=== PATIENT | female | born 1955 | race Caucasian/White ===

== ENCOUNTER 2019-07-06 19:24 | Inpatient (IN) | payer BC ==
[~2019-07-06] VITALS: Ht 167.6 cm; Wt 58.6 kg
--- NOTE | 2019-07-06 19:35 | NUR ---
THIS IS A 63Y F BIB EMS FROM [facility], PT HAS BEEN FEELING WEAK. "WAS HEADING TO HOSPITAL AND I PASSED OUT." PT FOUND HYPOTENSIVE AT [facility] 40'S/20'S PT WAS GIVEN 4L NS. PT BP NOW 112/63. PT HAS HX OF HYPOTHYROID AND HER TSH THERE WAS 15. PT ALSO REPORTS NAUSEA AND LOOSE STOOL STARTING ABOUT 2HRS AGO WITH 1 EPISODE OF VOMITING UPON ARRIVAL, NOW FEELS OK. PER EMS REPORT PT WAS FOUND TO HAVE ST DEPRESSION IN ALL LEADS OF EKG, TECH AT BEDSIDE FOR EKG AT THIS TIME. PT ALSO ARRIVED WITH A GRIFFIN IN PLACE. PT CONNECTED TO ALL MONITORS, VSS, NADN AT THIS TIME.
--- NOTE | 2019-07-06 19:58 | NUR ---
PT IN XRAY AT THIS TIME
[2019-07-06] MEDS ORDERED: SODIUM CHLORIDE FLUSH 10ML SYR IVF ONE (20:00)
[2019-07-06 20:25] LABS: BASOPHILS # (AUTO) 0.02 x10^3/uL (0-0.1); BASOPHILS % (AUTO) 0 % (0-1); EOSINOPHILS # (AUTO) 0.07 x10^3/uL (0-0.4); EOSINOPHILS % (AUTO) 1 % (1-7); LYMPHOCYTES # (AUTO) 0.75 x10^3/uL (1-3.4); LYMPHOCYTES % (AUTO) 5 % (22-44); MD NO; MEAN CORPUSCULAR HEMOGLOBIN 29.3 pg (27.0-34.8); MEAN CORPUSCULAR VOLUME 88.8 fL (80-100); MEAN PLATELET VOLUME 7.8 fL (7.4-10.4); MONOCYTES # (AUTO) 0.52 x10^3/uL (0.2-0.8); MONOCYTES % (AUTO) 4 % (2-9); NEUTROPHILS # (AUTO) 13.34 x10^3/uL (1.8-6.8); NEUTROPHILS % (AUTO) 91 % (42-75); PLATELET COUNT 284 x10^3/uL (130-400); RED BLOOD COUNT 4.88 x10^6/uL (3.82-5.3); RED CELL DISTRIBUTION WIDTH 13.1 % (9.6-15.2)
[2019-07-06 20:28] LABS: MICROSCOPIC NOT IND
[2019-07-06 20:31] LABS: ANION GAP 7 mmol/L (5-15); CALCIUM 6.8 mg/dL (8.5-10.1); CHLORIDE 111 mmol/L (98-107)
[2019-07-06 20:38] LABS: ALANINE AMINOTRANSFERASE 23 U/L (12-78); ALKALINE PHOSPHATASE 36 U/L (45-117); BILIRUBIN,TOTAL 0.3 mg/dL (0.2-1.0); CREATININE 0.62 mg/dL (0.55-1.02); TOTAL PROTEIN 5.5 g/dL (6.4-8.2); TROPONIN I 0.024 ng/mL (0.000-0.045)
--- NOTE | 2019-07-06 20:53 | NUR ---
ORTHOSTATIC VS DONE, SUP 93/58 HR 89, SITTING 86/49 HR 80, STANDING 98/47 HR 80. PT STS SHE DOES NOT FEEL DIZZY/ TINGLING OR UNSTEADY AT THIS TIME.
--- NOTE | 2019-07-06 21:15 | NUR ---
PT REQ GABY JC, ERP UPDATED ON REQ. PER DR. LILLIE GRIFFIN TO BE DC'D
[2019-07-06] MEDS ORDERED: ASPIRIN 325 MG TABLET EC PO ONE (22:00)
--- NOTE | 2019-07-06 22:03 | NUR ---
REPORT TO PRASHANTH BYERS ALL QUESTIONS ADDRESSED, PT READY FOR TRANSFER TO ROOM [id number]
[2019-07-06 22:27] VITALS: BP 100/64
[2019-07-06] MEDS ORDERED: ONDANSETRON 2MG/ML, 2ML IVPush PRN (22:30)
[2019-07-06] MEDS ORDERED: ACETAMINOPHEN 325 MG TABLET PO PRN (22:30)
[2019-07-06] MEDS: NS + 20MEQ KCL 1,000 ML IV SCH (23:31)
[2019-07-06 23:45] LABS: CLOSTRIDIUM DIFFICILE ANTIGEN NEGATIVE; CLOSTRIDIUM DIFFICILE TOXIN NEGATIVE (Negative)
[2019-07-07] MEDS ORDERED: MAGNESIUM SULFATE PMX 2GM/50ML 50 ML IV ONE ×2 (03:00→11:00)
[2019-07-07 03:35] VITALS: BP 90/47
[2019-07-07 06:12] LABS: ANION GAP 5 mmol/L (5-15); CALCIUM 7.2 mg/dL (8.5-10.1); CHLORIDE 111 mmol/L (98-107)
[2019-07-07 06:17] LABS: CREATININE 0.51 mg/dL (0.55-1.02); TROPONIN I 0.082 ng/mL (0.000-0.045)
[2019-07-07 06:39] LABS: BASOPHILS # (AUTO) 0.04 x10^3/uL (0-0.1); BASOPHILS % (AUTO) 0 % (0-1); EOSINOPHILS # (AUTO) 0.11 x10^3/uL (0-0.4); EOSINOPHILS % (AUTO) 1 % (1-7); LYMPHOCYTES # (AUTO) 0.89 x10^3/uL (1-3.4); LYMPHOCYTES % (AUTO) 8 % (22-44); MD NO; MEAN CORPUSCULAR HEMOGLOBIN 30.4 pg (27.0-34.8); MEAN CORPUSCULAR VOLUME 89.6 fL (80-100); MEAN PLATELET VOLUME 8.7 fL (7.4-10.4); MONOCYTES # (AUTO) 0.46 x10^3/uL (0.2-0.8); MONOCYTES % (AUTO) 4 % (2-9); NEUTROPHILS # (AUTO) 10.12 x10^3/uL (1.8-6.8); NEUTROPHILS % (AUTO) 87 % (42-75); PLATELET COUNT 220 x10^3/uL (130-400); RED BLOOD COUNT 4.12 x10^6/uL (3.82-5.3); RED CELL DISTRIBUTION WIDTH 13.3 % (9.6-15.2)
[2019-07-07 07:55] VITALS: BP 112/58
[2019-07-07] MEDS: NS + 20MEQ KCL 1,000 ML IV SCH (08:42)
[2019-07-07] MEDS ORDERED: REGADENOSON 0.4 MG/5 ML SYRINGE ONE (08:47)
[2019-07-07] MEDS ORDERED: VENL37.52 PO (10:14)
[2019-07-07] MEDS ORDERED: THYR60TA PO (10:14)
[2019-07-07] MEDS ORDERED: DIPHENHYDRAMINE 50 MG/ML, 1ML IVPush ONE (12:00)
[2019-07-07 12:24] LABS: FREE T4 (FREE THYROXINE) 0.6 ng/dL (0.76-1.46); LDL/HDL RATIO 0.9 (0.5-3.0)
[2019-07-07 13:50] VITALS: BP 99/59
[2019-07-07 14:32] LABS: TROPONIN I 0.051 ng/mL (0.000-0.045)
[2019-07-07] MEDS ORDERED: OMNIPAQUE 350 MG/ML, 75ML BOTTLE ONE (16:08)
[2019-07-07 21:49] VITALS: BP 93/52
[2019-07-08 03:15] VITALS: BP 101/57
[2019-07-08 05:21] LABS: BASOPHILS # (AUTO) 0.04 x10^3/uL (0-0.1); BASOPHILS % (AUTO) 1 % (0-1); EOSINOPHILS # (AUTO) 0.32 x10^3/uL (0-0.4); EOSINOPHILS % (AUTO) 5 % (1-7); LYMPHOCYTES # (AUTO) 1.97 x10^3/uL (1-3.4); LYMPHOCYTES % (AUTO) 28 % (22-44); MD NO; MEAN CORPUSCULAR HEMOGLOBIN 29.6 pg (27.0-34.8); MEAN CORPUSCULAR HGB CONC 32.7 g/dL (32.4-35.8); MEAN CORPUSCULAR VOLUME 90.3 fL (80-100); MONOCYTES # (AUTO) 0.32 x10^3/uL (0.2-0.8); MONOCYTES % (AUTO) 5 % (2-9); NEUTROPHILS # (AUTO) 4.31 x10^3/uL (1.8-6.8); NEUTROPHILS % (AUTO) 62 % (42-75); PLATELET COUNT 266 x10^3/uL (130-400); RED BLOOD COUNT 4.18 x10^6/uL (3.82-5.3); RED CELL DISTRIBUTION WIDTH 13.3 % (9.6-15.2)
[2019-07-08 05:31] LABS: CALCIUM 7.8 mg/dL (8.5-10.1); CHLORIDE 111 mmol/L (98-107)
[2019-07-08 05:35] LABS: ALANINE AMINOTRANSFERASE 27 U/L (12-78); ALKALINE PHOSPHATASE 32 U/L (45-117); ANION GAP 5 mmol/L (5-15); BILIRUBIN,TOTAL 0.3 mg/dL (0.2-1.0); CREATININE 0.53 mg/dL (0.55-1.02); TOTAL PROTEIN 5.6 g/dL (6.4-8.2)
[2019-07-08] MEDS ORDERED: METH4TAB2 PO (09:15)
[2019-07-08] MEDS ORDERED: MEDROL 4MG DOSEPAK PO SCH (09:30)
== END 2019-07-08 12:11 | disposition home or self-care (01) | DRG 872 ==
LOC: ED 21:02 → EDIP 21:18 → 5SO 22:28
PROVIDERS: ADMIT Internal Medicine; ATTEND Internal Medicine
DX: A41.9 Sepsis, unspecified organism (principal); E03.9 Hypothyroidism, unspecified; F32.9 Major depressive disorder, single episode, unspecified; E87.6 Hypokalemia; E06.3 Autoimmune thyroiditis; W18.30XA Fall on same level, unspecified, initial encounter; Z87.891 Personal history of nicotine dependence; Z88.0 Allergy status to penicillin; Z88.1 Allergy status to other antibiotic agents; Z88.8 Allergy status to other drugs, medicaments and biological substances
CPT/HCPCS: 36415; 70450; 71275; 74022; 78452; 80048; 80053; 80061; 81003; 83605; 83690; 83735; 84145; 84439; 84443; 84484; 85025; 85379; 87040; 87324; 93005; 93017; 93306; 93880; 99285; G0378; J2785; J3480; J7509; Q9967; A9502; C9898; J1200; J3475